=== PATIENT | female | born 1975 | race African-American/Black ===

== ENCOUNTER 2016-07-23 20:03 | Emergency (ER) | payer SELFPAY ==
[2016-07-23] MEDS ORDERED: predniSONE 20 MG TAB ONE (20:33)
--- NOTE | 2016-07-23 20:45 | ERRECORD ---
[facility] EMERGENCY RECORD HPI RASH (22:29 LHOD) CHIEF COMPLAINT: Patient presents for evaluation of pruritis. HISTORIAN: History provided by patient. TIME COURSE: PT HAS PRESSURED SPEECH AND KEEPS DESCRIBING HER FEAR PEOPLE ARE "FLICKING" INSECTS OFF THEIR HAIR ONTO HER. SHE REPORTS HER SCALP AND ARMS HAVE BEEN ITCHING "FOR A MINUTE". I ASKED HOW LONG THAT MEANT SINCE SHE SAID A LONG TIME, SHE SAID MAYBE A YEAR. ROS (22:30 LHOD) CONSTITUTIONAL: Historian denies fever. CARDIOVASCULAR: Historian denies chest pain. RESPIRATORY: Historian denies shortness of breath, denies wheezing. GI: Historian denies abdominal pain, denies nausea, denies vomiting. SKIN: Historian reports pruritis, denies rash. NO RASH, BUT PT SCRATCHED AREAS ON TOP OF SCALP. ALLERGIC/IMMUNOLOGIC: Historian denies hives. NOTES: All systems reviewed, negative except as described above. PAST MEDICAL HISTORY MEDICAL HISTORY: No past medical history, Flu vaccine not up to date, Tetanus immunization up to date, Pneumococcal vaccine not up to date. (20:17 CJEF) FEMALE SURGICAL HISTORY: Surgical history of tubal ligation, Date of surgery 2004. (20:17 CJEF) SOCIAL HISTORY: Patient currently uses drugs, abuses marijuana, Patient drinks socially, Patient denies drug use, Patient currently uses tobacco, smokes cigarettes, Light tobacco smoker, SOCIALLY. (20:17 CJEF) FAMILY HISTORY: Family history includes diabetes, mother, Family history includes malignancy, father. (20:17 CJEF) NOTES: Nursing records reviewed. (22:37 LHOD) KNOWN ALLERGIES ALLERGIES: (Unconfirmed) Flagyl: Reaction: Nausea FOOD ALLERGIES: (Unconfirmed) LATEX ALLERGY? (Unconfirmed) No Known Allergies (Unconfirmed) CURRENT MEDICATIONS (20:15 CJEF) None VITAL SIGNS VITAL SIGNS: Pulse: 88, Resp: 20, Temp: 98.4 (Tympanic), Pain: 0, O2 sat: 96 on Room Air, Time: 07/23/2016 20:10. (20:10 CJEF) BP: 131/91, Time: 07/23/2016 20:15. (20:15 CJEF) &a-1R&a+25V*p+0X*h8181F*c202B*c15G*c2P*p-0X&a-25V&a+1R Name: Ayanna Lopes : 1975 F40 MedRec: [id number] AcctNum: [id number] Prepared: TueJul 23, 2016 22:42 by Interface Page [address] [facility] EMERGENCY RECORD PHYSICAL EXAM (22:31 LHOD) CONSTITUTIONAL: Vital signs reviewed, Patient afebrile, Pulse normal, Blood pressure normal, Respiratory rate normal, Patient alert and oriented to person, place and time. HEAD: Head exam included findings of head atraumatic. EYES: Pupils equally round and reactive to light, Extraocular muscles intact. NECK: Neck exam included findings of normal range of motion, Trachea midline. RESPIRATORY CHEST: Respiratory exam included findings of no respiratory distress, Breath sounds clear. CARDIOVASCULAR: Cardiovascular exam included findings of heart rate regular rate and rhythm, Heart sounds normal. ABDOMEN FEMALE: Abdominal exam included findings of abdomen nontender. UPPER EXTREMITY: Upper extremity exam normal. LOWER EXTREMITY: Lower extremity exam normal. NEURO: Neuro exam findings include patient oriented to person, place and time. SKIN: no rash, 1 AREA OF EXCORIATION OF LEFT TOP OF SCALP. NO OTHER EVIDENCE OF LICE OR RASH. PSYCHIATRIC: Affect, anxious. MEDICATION ADMINISTRATION SUMMARY Drug Name: predniSONE oral, Dose Ordered: 40 mg, Route: Oral, Status: Given, Time: 20:38 07/23/2016, Detailed record available in Medication Service section. DOCTOR NOTES (22:38 LHOD) TEXT: I DO NOT SEE DEFINITE SCABIES, BUT PT REQUESTS MEDICATED SHAMPOO, SINCE SHE IS CONCERNED SHE HAS BEEN EXPOSED TO IT. PROBLEM LIST No recorded problems DIAGNOSIS (20:26 LHOD) FINAL: PRIMARY: NON-SPECIFIC DERMATITIS. PRESCRIPTION predniSONE oral: TABLET : 20 mg : ORAL : Quantity: 2 Unit: tab(s) Route: ORAL Schedule: once a day Dispense: 6 May substitute. Refills: No Refills . (20:26 LHOD) NOTES: No Refills. (20:26 LHOD) permethrin: CREAM (GRAM) : 5 % : TOPICAL : Quantity: 1 Unit: units Route: TOPICAL Schedule: ONCE Dispense: 1 May substitute. Refills: No Refills . (20:27 LHOD) NOTES: No Refills. (20:27 LHOD) permethrin: LIQUID (ML) : 1 % : TOPICAL : Quantity: 1 &a-1R&a+25V*p+0X*y4548R*c202B*c15G*c2P*p-0X&a-25V&a+1R Name: Ayanna Lopes : 1975 F40 MedRec: [id number] AcctNum: [id number] Prepared: TueJul 23, 2016 22:42 by Interface Page [address] [facility] EMERGENCY RECORD Unit: units Route: TOPICAL Schedule: See Notes Dispense: 1 May substitute. Refills: No Refills . (20:28 LHOD) NOTES: No Refills. (20:28 LHOD) DISPOSITION PATIENT: Disposition Type: Discharge, Disposition: *Discharge Home, Condition: Good. (20:26 LHOD) Patient left the department. (20:39 [facility]) Aguirre: CJEF=BRET Hutchinson, Carolyn LHOD=MD Ingris, Tati &a-1R&a+25V*p+0X*s6215R*c202B*c15G*c2P*p-0X&a-25V&a+1R Name: Ayanna Lopes : 1975 F40 MedRec: [id number] AcctNum: [id number] Prepared: TueJul 23, 2016 22:42 by Interface Page 3 [facility] 3 [facility]MD [facility]
--- NOTE | 2016-07-23 20:51 | PICIS ---
[facility] EMERGENCY RECORD TRIAGE (TueJul 23, 2016 20:14 CJEF) TRIAGE NOTES: PT REPORTS ITCHING TO SCALP PRIMAIRLY, THOUGH PT WITH SCATTERED THOUGHTS AND HARD TO FOLLOW. PT ALSO REPORTS ITCHING TO BODY. PT STATES THAT SHE HAS HAD THIS EPISODE BEFORE AND STATES THAT SHE WAS TOLD THIS ITCHING WAS DUE TO OVERDOSING ON MEDS. PT STATES THAT SHE NOTS SURE WHAT THE CAUSE IS. PT ALSO STATES SHE HAS BEEN TALKING TO MANY PEOPLE ATTEMPTING TO SELF DIAGNOSE. (TueJul 23, 2016 20:14 CJEF) PATIENT: NAME: Ayanna Lopes, AGE: 40, GENDER: female, : Tue1975, TIME OF GREET: TueJul 23, 2016 20:04, PREFERRED LANGUAGE: Indonesian, ETHNICITY: Not or , ECODE BILLING MAP: [facility], SSN: [id number], Zip Code: [address], KG WEIGHT: 58.97, PHONE: , , , PERSON ID: [id number], PCP: NONE. (TueJul 23, 2016 20:14 CJEF) COMPLAINT: ITCHING FROM HEAD TO TOE. (TueJul 23, 2016 20:14 CJEF) ADMISSION: URGENCY: 4 Non Urgent, ADMISSION SOURCE: Home, TRANSPORT: Walk-in, BED: TRIAGE. (TueJul 23, 2016 20:14 CJEF) ASSESSMENT: Assessment: ITCHING ENTIRE BODY. (20:17 CJEF) PAIN: No complaint of pain. (20:17 CJEF) IMMUNIZATIONS: Flu vaccine not up to date, Tetanus immunization up to date, Pneumococcal vaccine not up to date. (20:17 CJEF) SIRS SCORING: Heart Rate 55-109 (0), Temp range 96.8-101.1 (0), respiratory rate 12-24 (0), Mental Status altered: no (0), Infection or Suspected Infection: No. (20:17 CJEF) TRIAGE SCREENING: Patient denies suicidal ideation, Patient denies presence of domestic violence. (20:17 CJEF) PROVIDERS: TRIAGE NURSE: Carolyn Hutchinson RN. (TueJul 23, 2016 20:14 CJEF) VITAL SIGNS: Pulse 88, Resp 20, Temp 98.4, (Tympanic), Pain 0, O2 Sat 96, on Room Air, Time 07/23/2016 20:10. (20:10 CJEF) BP 131/91, Time 07/23/2016 20:15. (20:15 CJEF) PREVIOUS VISIT ALLERGIES: Flagyl. (TueJul 23, 2016 20:14 CJEF) Flagyl. (20:17 CJEF) KNOWN ALLERGIES ALLERGIES: (Unconfirmed) Flagyl: Reaction: Nausea FOOD ALLERGIES: (Unconfirmed) LATEX ALLERGY? (Unconfirmed) No Known Allergies (Unconfirmed) CURRENT MEDICATIONS (20:15 CJEF) None VITAL SIGNS VITAL SIGNS: Pulse: 88, Resp: 20, Temp: 98.4 (Tympanic), Pain: 0, O2 sat: 96 on Room Air, Time: 07/23/2016 20:10. (20:10 CJEF) &a-1R&a+25V*p+0X*y2707I*c202B*c15G*c2P*p-0X&a-25V&a+1R Name: Ayanna Lopes : 1975 F40 MedRec: [id number] AcctNum: [id number] Prepared: TueJul 23, 2016 22:49 by Interface Page 1 of 5 pMD [facility] EMERGENCY RECORD BP: 131/91, Time: 07/23/2016 20:15. (20:15 CJEF) NURSING ASSESSMENT: SKIN (20:17 CJEF) CONSTITUTIONAL: Complex assessment performed, Patient arrives ambulatory, Gait steady, History obtained from patient, Patient appears, anxious, Patient cooperative, Patient alert, Oriented to person, place and time, Skin warm, Skin dry, Skin normal in color, Mucous membranes pink, Mucous membranes moist, Patient, with poor personal hygiene, PT REPORTS ITCHING TO SCALP PRIMAIRLY, THOUGH PT WITH SCATTERED THOUGHTS AND HARD TO FOLLOW. PT ALSO REPORTS ITCHING TO BODY. PT STATES THAT SHE HAS HAD THIS EPISODE BEFORE AND STATES THAT SHE WAS TOLD THIS ITCHING WAS DUE TO OVERDOSING ON MEDS. PT STATES THAT SHE NOTS SURE WHAT THE CAUSE IS. PT ALSO STATES SHE HAS BEEN TALKING TO MANY PEOPLE ATTEMPTING TO SELF DIAGNOSE. PAIN: itching pain, ITCHING TO ENTIRE BODY. SKIN: Skin assessment findings include skin warm, Skin dry, Skin normal in color, Notes: ITCHING TO ENTIRE BODY. NOTES: Patient tolerated procedure well. SAFETY: Side rails up, Cart/Stretcher in lowest position, Family at bedside, Call light within reach, Hospital ID band on. NURSING PROCEDURE: DISCHARGE NOTE (20:38 [facility]) DISCHARGE: Patient discharged to home, ambulating without assistance, driving self, unaccompanied, Summary of Care printed/ provided, Patient requested and was provided an electronic copy of Discharge Instructions, Transition record given to patient, Discharge instructions given to patient, Simple or moderate discharge teaching performed, Prescriptions given and instructions on side effects given, Medication reconciliation form given, Above person(s) verbalized understanding of discharge instructions and follow-up care, Patient treated and evaluated by physician. BELONGINGS: Belongings remain with patient. NOTES: Patient tolerated procedure well. SAFETY: Side rails up, Cart/Stretcher in lowest position, Family at bedside, Call light within reach, Hospital ID band on. MEDICATION ADMINISTRATION SUMMARY Drug Name: predniSONE oral, Dose Ordered: 40 mg, Route: Oral, Status: Given, Time: 20:38 07/23/2016, Detailed record available in Medication Service section. MEDICATION SERVICE (20:38 [facility]) predniSONE oral: Order: predniSONE oral (prednisone) - Dose: 40 mg : Oral Ordered by: Tati Amado MD Entered by: Tati Amado MD TueJul 23, 2016 20:25 Documented as given by: Carolyn Hutchinson RN TueJul 23, 2016 20:38 Patient, Medication, Dose, Route and Time verified prior to &a-1R&a+25V*p+0X*x7654A*c202B*c15G*c2P*p-0X&a-25V&a+1R Name: Ayanna Lopes : 1975 F40 MedRec: [id number] AcctNum: [id number] Prepared: TueJul 23, 2016 22:49 by Interface Page 2 of 5 pMD [facility] EMERGENCY RECORD administration. Amount given: 40MG, Site: Medication administered P.O., Mouth check performed after administration of medication, Patient appears Awake and alert- acceptable, Correct patient, time, route, dose and medication confirmed prior to administration, Patient advised of actions and side-effects prior to administration, Allergies confirmed and medications reviewed prior to administration, Patient tolerated procedure well, Patient in position of comfort, Side rails up, Cart in lowest position, Family at bedside. HPI RASH (22:29 LHOD) CHIEF COMPLAINT: Patient presents for evaluation of pruritis. HISTORIAN: History provided by patient. TIME COURSE: PT HAS PRESSURED SPEECH AND KEEPS DESCRIBING HER FEAR PEOPLE ARE "FLICKING" INSECTS OFF THEIR HAIR ONTO HER. SHE REPORTS HER SCALP AND ARMS HAVE BEEN ITCHING "FOR A MINUTE". I ASKED HOW LONG THAT MEANT SINCE SHE SAID A LONG TIME, SHE SAID MAYBE A YEAR. ROS (22:30 LHOD) CONSTITUTIONAL: Historian denies fever. CARDIOVASCULAR: Historian denies chest pain. RESPIRATORY: Historian denies shortness of breath, denies wheezing. GI: Historian denies abdominal pain, denies nausea, denies vomiting. SKIN: Historian reports pruritis, denies rash. NO RASH, BUT PT SCRATCHED AREAS ON TOP OF SCALP. ALLERGIC/IMMUNOLOGIC: Historian denies hives. NOTES: All systems reviewed, negative except as described above. PAST MEDICAL HISTORY MEDICAL HISTORY: No past medical history, Flu vaccine not up to date, Tetanus immunization up to date, Pneumococcal vaccine not up to date. (20:17 CJEF) FEMALE SURGICAL HISTORY: Surgical history of tubal ligation, Date of surgery 2004. (20:17 CJEF) SOCIAL HISTORY: Patient currently uses drugs, abuses marijuana, Patient drinks socially, Patient denies drug use, Patient currently uses tobacco, smokes cigarettes, Light tobacco smoker, SOCIALLY. (20:17 CJEF) FAMILY HISTORY: Family history includes diabetes, mother, Family history includes malignancy, father. (20:17 CJEF) NOTES: Nursing records reviewed. (22:37 LHOD) PHYSICAL EXAM (22:31 LHOD) CONSTITUTIONAL: Vital signs reviewed, Patient afebrile, Pulse normal, Blood pressure normal, Respiratory rate normal, Patient alert and oriented to person, place and time. HEAD: Head exam included findings of head atraumatic. &a-1R&a+25V*p+0X*p4721Q*c202B*c15G*c2P*p-0X&a-25V&a+1R Name: Ayanna Lopes : 1975 F40 MedRec: [id number] AcctNum: [id number] Prepared: TueJul 23, 2016 22:49 by Interface Page 3 of 5 pMD [facility] EMERGENCY RECORD EYES: Pupils equally round and reactive to light, Extraocular muscles intact. NECK: Neck exam included findings of normal range of motion, Trachea midline. RESPIRATORY CHEST: Respiratory exam included findings of no respiratory distress, Breath sounds clear. CARDIOVASCULAR: Cardiovascular exam included findings of heart rate regular rate and rhythm, Heart sounds normal. ABDOMEN FEMALE: Abdominal exam included findings of abdomen nontender. UPPER EXTREMITY: Upper extremity exam normal. LOWER EXTREMITY: Lower extremity exam normal. NEURO: Neuro exam findings include patient oriented to person, place and time. SKIN: no rash, 1 AREA OF EXCORIATION OF LEFT TOP OF SCALP. NO OTHER EVIDENCE OF LICE OR RASH. PSYCHIATRIC: Affect, anxious. EVENTS TRANSFER: Triage to Emergency Triage. (TueJul 23, 2016 20:14 CJEF) Emergency Triage to Main ED -03. (20:17 CJEF) Removed from Emergency Main ED -03. (20:39 CJEF) DOCTOR NOTES (22:38 LHOD) TEXT: I DO NOT SEE DEFINITE SCABIES, BUT PT REQUESTS MEDICATED SHAMPOO, SINCE SHE IS CONCERNED SHE HAS BEEN EXPOSED TO IT. PROBLEM LIST No recorded problems DIAGNOSIS (20:26 LHOD) FINAL: PRIMARY: NON-SPECIFIC DERMATITIS. DISPOSITION PATIENT: Disposition Type: Discharge, Disposition: *Discharge Home, Condition: Good. (20:26 LHOD) Patient left the department. (20:39 CJEF) INSTRUCTION (20:29 LHOD) DISCHARGE: CONTACT DERMATITIS, SCABIES. FOLLOWUP: Follow up with Primary Care Physician in 5 days. SPECIAL: BENADRYL 25 MG EVERY 6 HOURS NEEDED FOR ITCHING. COOL COMPRESSES TO SKIN TO DECREASE ITCHING. Follow-up with your PCP. PRESCRIPTION predniSONE oral: TABLET : 20 mg : ORAL : Quantity: 2 Unit: tab(s) Route: ORAL Schedule: once a day Dispense: 6 &a-1R&a+25V*p+0X*r8135I*c202B*c15G*c2P*p-0X&a-25V&a+1R Name: Ayanna Lopes : 1975 F40 MedRec: [id number] AcctNum: [id number] Prepared: TueJul 23, 2016 22:49 by Interface Page 4 of 5 pMD [facility] EMERGENCY RECORD May substitute. Refills: No Refills . (20:26 LHOD) NOTES: No Refills. (20:26 LHOD) permethrin: CREAM (GRAM) : 5 % : TOPICAL : Quantity: 1 Unit: units Route: TOPICAL Schedule: ONCE Dispense: 1 May substitute. Refills: No Refills . (20:27 LHOD) NOTES: No Refills. (20:27 LHOD) permethrin: LIQUID (ML) : 1 % : TOPICAL : Quantity: 1 Unit: units Route: TOPICAL Schedule: See Notes Dispense: 1 May substitute. Refills: No Refills . (20:28 LHOD) NOTES: No Refills. (20:28 LHOD) IMAGING (20:39 [facility]) *DISCHARGE INSTRUCTIONS RECEIPT: Image captured from scanner. Page 2 added. Image captured from scanner. *SUPPLY CHARGE SHEET: Image captured from scanner. ADMIN (22:38 LHOD) DIGITAL SIGNATURE: MD Amado Lefayne. Aguirre: CJEF=BRET Hutchinson, Carolyn LHOD=MD Amado Lefayne &a-1R&a+25V*p+0X*s0761U*c202B*c15G*c2P*p-0X&a-25V&a+1R Name: Ayanna Lopes : 1975 F40 MedRec: [id number] AcctNum: [id number] Prepared: TueJul 23, 2016 22:49 by Interface Page 5 of 5 pMD [facility]
== END 2016-07-23 20:40 | disposition home or self-care (01) ==
LOC: MADERS 20:03
DX: L30.9 Dermatitis, unspecified (principal); F17.210 Nicotine dependence, cigarettes, uncomplicated
CPT/HCPCS: 99282; J7506

== ENCOUNTER 2017-02-20 16:29 | Emergency (ER) | payer SELFPAY ==
--- NOTE | 2017-02-20 17:56 | RAD ---
RIGHT WRIST THREE VIEWS: Date: 02-20-17 History: Joint pain. FINDINGS: No widening of the scapholunate interval. No displaced fracture or dislocation is seen. IMPRESSION: No acute findings. If the study was performed in the setting of trauma and symptoms persist, follow up in 7-10 days with dedicated scaphoid views advised. POS: [facility]
== END 2017-02-20 17:30 | disposition home or self-care (01) ==
LOC: MADERS 16:29
DX: M25.531 Pain in right wrist (principal)

== ENCOUNTER 2017-03-15 15:14 | Emergency (ER) | payer SELFPAY ==
[2017-03-15] MEDS ORDERED: Ketorolac Tromethamine 30 MG/ML VIAL ONE (16:19)
== END 2017-03-15 16:50 | disposition home or self-care (01) ==
LOC: MADERS 15:14
DX: I88.9 Nonspecific lymphadenitis, unspecified (principal); F17.210 Nicotine dependence, cigarettes, uncomplicated
CPT/HCPCS: 96372; J1885

== ENCOUNTER 2017-03-16 14:42 | Emergency (ER) | payer SELFPAY ==
[2017-03-16] MEDS ORDERED: Mag-Al Plus 1200 MG/1200 MG/120 MG/30 ML UDCUP ONE (14:58)
[2017-03-16 15:42] LABS: Clarity Hazy (Clear); Leukocyte Trace (Negative); Nitrite Negative (Negative); Pregnancy Test - Urine (BHCG) Negative (Negative); Pregu Control Background? CLEAR/WHITE (CLR/WHITE); Pregu Control Bar Appear? YES (CONTROL BAR); Protein, Urine (Dipstick) Negative (Neg-Trace); Specific Gravity 1.015 (1.002-1.036); Specific Gravity, Urine 1.015 (1.005-1.030)
[2017-03-16 15:43] LABS: Bilirubin Negative (Negative); Blood, Urine Negative (Negative); Glucose, Urine (Dipstick) Negative (Negative); Urobilinogen 0.2 mg/dL (0.2-1.0)
[2017-03-16 15:50] LABS: Bacteria/HPF Rare-Few HPF (None Seen); RBC/HPF None Seen HPF (0-3); Trichomonas/HPF Rare HPF (None Seen)
[2017-03-16 16:20] LABS: Amphetamine Detected (NotDetected); Benzodiazepine Screen Not Detected (NotDetected); Cocaine Metabolite Screen Detected (NotDetected); Methadone Not Detected (NotDetected); Methamphetamine Detected (NotDetected); Opiate Screen Not Detected (NotDetected); Phencyclidine (PCP) Not Detected (NotDetected); THC/Cannabinoid Screen Detected (NotDetected); Tricyclic Screen Not Detected (NotDetected)
[2017-03-16 16:21] LABS: Barbiturates Screen Not Detected (NotDetected); Medtox Control Line Valid? VALID (VALID); Oxycodone Screen Not Detected (NotDetected)
[2017-03-16 16:34] LABS: ALT (SGPT) 10 U/L (8-55); AST (SGOT) 12 U/L (5-34); Albumin 3.2 g/dL (3.5-5.0); Alkaline Phosphatase 54 U/L (40-150); Anion Gap 11 mmol/L (10-20); BUN (Urea Nitrogen) 7 mg/dL (7.0-18.7); Bilirubin, Total 0.5 mg/dL (0.2-1.2); Calc. Creatinine Clearance 0 mL/min (70-130); Calcium 9.1 mg/dL (7.8-10.44); Carbon Dioxide 28 mmol/L (22-29); Chloride 103 mmol/L (98-107); Estimated GFR-MDRD Greater than 90; Globulin 4.2 g/dL (2.4-3.5); Glucose 100 mg/dL (70-105); Potassium 3.5 mmol/L (3.5-5.1); Protein, Total 7.4 g/dL (6.0-8.3); Sodium 138 mmol/L (136-145)
[2017-03-16 16:36] LABS: Eosinophils 5 % (0-10); Hemoglobin 12.5 g/dL (12.0-16.0); Lymphocytes 24 % (21-51); MDiff Complete? YES; Mean Corpuscular HGB CONC 32.1 g/dL (32.0-36.0); Mean Corpuscular Hemoglobin 31.2 pg (27.0-31.0); Mean Corpuscular Volume 97.5 fl (81.0-99.0); Mean Platelet Volume 8.2 fL (7.4-10.4); Monocytes 7 % (0-10); Neutrophil 54 % (42-75); PLT Morphology Comment Appears Adequate; Platelet Count 289 thou/uL (130-400); RBC Distribution Width 12.5 % (11.5-14.5); RBC Morphology Normal; Reactive Lymphocytes 10 % (0-10); Red Blood Cell (RBC) Count 3.99 mill/uL (4.20-5.40); White Blood Cell (WBC) Count 4.9 thou/uL (4.8-10.8)
[2017-03-16] MEDS ORDERED: Azithromycin 250 MG TAB ONE (16:45)
[2017-03-16] MEDS ORDERED: cefTRIAXone\\ROCEPHIN 250 MG VIAL ONE (16:45)
[2017-03-16] MEDS ORDERED: Lidocaine 1% 20 ML MDV ONE (16:45)
[2017-03-16] MEDS ORDERED: Pantoprazole 40 MG VIAL ONE (19:06)
[2017-03-16] MEDS ORDERED: Promethazine HCl 25 MG/ML VIAL ONE (19:06)
== END 2017-03-16 17:20 | disposition home or self-care (01) ==
LOC: MADERS 14:42
DX: F12.10 Cannabis abuse, uncomplicated (principal); S66.91 Strain of unspecified muscle, fascia and tendon at wrist and hand level; F17.210 Nicotine dependence, cigarettes, uncomplicated; X58.XXXD Exposure to other specified factors, subsequent encounter
CPT/HCPCS: 36415; 80053; 80306; 81001; 81025; 85025; 96372; C9113; J0696; J2001; J2550

== ENCOUNTER 2017-03-16 18:16 | Emergency (ER) | payer SELFPAY ==
--- NOTE | 2017-03-16 20:00 | RAD ---
ABDOMEN TWO VIEW ONE VIEW CHEST X-RAY 03/16/17 HISTORY: Pain. COMPARISON: Abdomen two view with one view chest x-ray 2015. FINDINGS: Prominent nipple shadows. Lungs are clear without pneumothorax or effusion or focal air space consol idation. Cardiac silhouette and mediastinal contours are normal. No dilated loops of large or small bowel. No free air under the hemidiaphragms. No abnormal calcific ation projecting over the renal shadows. There are phleboliths in the pelvis. Five nonribbearing lum bar type vertebrae. IMPRESSION: No acute intrathoracic or intra-abdominal abnormality. POS: [facility]
[2017-03-16] MEDS ORDERED: Sodium Chloride 0.9% 100 ML BAG ONE (20:15)
[2017-03-16] MEDS ORDERED: Sodium Chloride 0.9% 1,000 ML BAG ONE (20:15)
[2017-03-16] MEDS ORDERED: diphenhydrAMINE HCl 25 MG CAP ONE (21:35)
== END 2017-03-16 21:45 | disposition home or self-care (01) ==
LOC: MADERS 18:16
DX: K29.00 Acute gastritis without bleeding (principal); F12.10 Cannabis abuse, uncomplicated; F17.210 Nicotine dependence, cigarettes, uncomplicated
CPT/HCPCS: 74022; 83690; 96361; 96365; 96375; J7050

== ENCOUNTER 2017-06-11 00:36 | Emergency (ER) | payer MEDICAID, SELFPAY ==
[2017-06-11] MEDS ORDERED: Ondansetron ODT 4 MG TAB ONE (01:21)
[2017-06-11] MEDS ORDERED: cefTRIAXone\\ROCEPHIN 500 MG VIAL ONE (01:21)
[2017-06-11] MEDS ORDERED: Azithromycin 250 MG TAB ONE (01:21)
[2017-06-11] MEDS ORDERED: Lidocaine 1% 20 ML MDV ONE (01:22)
[2017-06-11 01:31] LABS: Wet Prep Clue Cells Clue Cells Absent (None Seen); Wet Prep Spermatozoa 2nd Revie Agree with result (None Seen); Wet Prep Trichomonas Trichomonas Absent (None Seen)
[2017-06-13 01:19] LABS: Chlamydia by PCR Not Detected (NotDetected); GC by PCR Not Detected (NotDetected)
== END 2017-06-11 01:51 | disposition home or self-care (01) ==
LOC: MADERS 00:36
DX: A60.04 Herpesviral vulvovaginitis (principal); F14.10 Cocaine abuse, uncomplicated; F32.9 Major depressive disorder, single episode, unspecified; F17.210 Nicotine dependence, cigarettes, uncomplicated
CPT/HCPCS: 87210; 87491; 87591; 96372; J0696; J2001; Q0162

== ENCOUNTER 2017-07-28 13:23 | Emergency (ER) | payer MEDICAID ==
[2017-07-28] MEDS ORDERED: Triple Antibiotic Oint 1 GM Packet ONE (13:45)
[2017-07-28] MEDS ORDERED: Adacel (T-DAP) 0.5 ML VIAL ONE (13:54)
[2017-07-28 14:05] LABS: Amphetamine Not Detected (NotDetected); Barbiturates Screen Not Detected (NotDetected); Benzodiazepine Screen Not Detected (NotDetected); Cocaine Metabolite Screen Not Detected (NotDetected); Medtox Control Line Valid? VALID (VALID); Methadone Not Detected (NotDetected); Methamphetamine Not Detected (NotDetected); Opiate Screen Not Detected (NotDetected); Oxycodone Screen Not Detected (NotDetected); Phencyclidine (PCP) Not Detected (NotDetected); THC/Cannabinoid Screen Not Detected (NotDetected); Tricyclic Screen Not Detected (NotDetected)
== END 2017-07-28 14:35 | disposition home or self-care (01) ==
LOC: MADERS 13:23
DX: T20.54XA Corrosion of first degree of nose (septum), initial encounter (principal); F32.9 Major depressive disorder, single episode, unspecified; F17.210 Nicotine dependence, cigarettes, uncomplicated
CPT/HCPCS: 80306; 90471; 90715

== ENCOUNTER 2019-10-03 02:26 | Emergency (ER) | payer MEDICAID, SELFPAY ==
[2019-10-03] MEDS ORDERED: Famotidine In NaCl 20 mg/50 ml Premix Bag ONE (03:08)
[2019-10-03] MEDS ORDERED: Mag-Al Plus 1200 MG/1200 MG/120 MG/30 ML UDCUP ONE (03:08)
[2019-10-03] MEDS ORDERED: Sodium Chloride 0.9% 1,000 ML ONE (03:08)
[2019-10-03] MEDS ORDERED: Lidocaine Viscous Sol 2% 15 ml UD Cup ONE (03:08)
[2019-10-03 03:10] LABS: #Basophils 0.1 thou/uL (0.0-0.2); #Eosinphils 0.3 thou/uL (0.0-0.7); #Monocytes 0.4 thou/uL (0.11-0.59); #Neutrophils 2.1 thou/uL (1.40-6.50); %Basophils 1.8 % (0.0-1.0); %Eosinophils 5.6 % (0.0-10.0); %Lymphocytes 41.1 % (21.0-51.0); %Monocytes 8.9 % (0.0-10.0); %Neutrophils 42.6 % (42.0-75.0); Hemoglobin 12.2 g/dL (12.0-16.0); Mean Corpuscular HGB CONC 30.9 g/dL (32.0-36.0); Mean Corpuscular Volume 100.1 fL (78.0-98.0); Mean Platelet Volume 7.9 fL (7.4-10.4); Platelet Count 307 thou/uL (130-400); RBC Distribution Width 13.5 % (11.5-14.5); Red Blood Cell (RBC) Count 3.95 mill/uL (4.20-5.40); White Blood Cell (WBC) Count 4.9 thou/uL (4.8-10.8)
[2019-10-03 03:19] LABS: BHCG - Serum Negative (NEGATIVE); Pregs Control Background? CLEAR/WHITE (CLR/WHITE); Pregs Control Bar Appear? YES (CONTROL BAR)
[2019-10-03 03:23] LABS: ALT (SGPT) 13 U/L (8-55); AST (SGOT) 14 U/L (5-34); Albumin 3.6 g/dL (3.5-5.0); Alkaline Phosphatase 73 U/L (40-110); Anion Gap 14 mmol/L (10-20); BUN (Urea Nitrogen) 6 mg/dL (7.0-18.7); Bilirubin, Total 0.4 mg/dL (0.2-1.2); Calc. Creatinine Clearance 0 mL/min (70-130); Calcium 8.7 mg/dL (7.8-10.44); Carbon Dioxide 25 mmol/L (22-29); Chloride 103 mmol/L (98-107); Estimated GFR-MDRD Greater than 90; Globulin 4.3 g/dL (2.4-3.5); Glucose 89 mg/dL (70-105); Lipase 20 U/L (8-78); Potassium 3.8 mmol/L (3.5-5.1); Protein, Total 7.9 g/dL (6.0-8.3); Sodium 138 mmol/L (136-145)
== END 2019-10-03 04:15 | disposition home or self-care (01) ==
LOC: MADERS 02:26
DX: R10.10 Upper abdominal pain, unspecified (principal); R11.0 Nausea; M19.90 Unspecified osteoarthritis, unspecified site; F32.9 Major depressive disorder, single episode, unspecified; F17.210 Nicotine dependence, cigarettes, uncomplicated
CPT/HCPCS: 80053; 83690; 84703; 85025; 93005; 96361; 96365; J7050

== ENCOUNTER 2019-11-22 00:26 | Emergency (ER) | payer SELFPAY | END 2019-11-22 01:05 | disposition home or self-care (01) | LOC: MADERS 00:26 | DX: K64.5 Perianal venous thrombosis (principal); M19.90 Unspecified osteoarthritis, unspecified site; F32.9 Major depressive disorder, single episode, unspecified; F17.210 Nicotine dependence, cigarettes, uncomplicated | CPT/HCPCS: 99283 ==

== ENCOUNTER 2019-11-30 06:20 | Emergency (ER) | payer SELFPAY ==
[2019-11-30] MEDS ORDERED: Sodium Chloride 0.9% 1,000 ML ONE (07:06)
[2019-11-30] MEDS ORDERED: Lorazepam 2 MG/ML VIAL ONE (07:06)
[2019-11-30 07:23] LABS: #Eosinphils 0.1 thou/uL (0.0-0.7); #Lymphocytes 1.5 thou/uL (1.20-3.40); #Monocytes 0.6 thou/uL (0.11-0.59); #Neutrophils 2.7 thou/uL (1.40-6.50); %Basophils 0.9 % (0.0-1.0); %Eosinophils 2.3 % (0.0-10.0); %Lymphocytes 29.7 % (21.0-51.0); %Monocytes 11.9 % (0.0-10.0); %Neutrophils 55.2 % (42.0-75.0); Hemoglobin 12.5 g/dL (12.0-16.0); Mean Corpuscular HGB CONC 30.5 g/dL (32.0-36.0); Mean Corpuscular Hemoglobin 31.2 pg (27.0-31.0); Mean Corpuscular Volume 102.4 fL (78.0-98.0); Mean Platelet Volume 7.9 fL (7.4-10.4); Platelet Count 281 thou/uL (130-400); RBC Distribution Width 13.2 % (11.5-14.5); Red Blood Cell (RBC) Count 4.01 mill/uL (4.20-5.40); White Blood Cell (WBC) Count 4.9 thou/uL (4.8-10.8)
[2019-11-30 07:36] LABS: Acetaminophen Less than 6.0 mcg/mL (10.0-30.0); Alcohol Less than 10 mg/dL (Less than 10); Salicylate Less than 8.0 mg/dL (15.0-30.0)
[2019-11-30 07:38] LABS: ALT (SGPT) 18 U/L (8-55); AST (SGOT) 20 U/L (5-34); Albumin 3.7 g/dL (3.5-5.0); Alkaline Phosphatase 72 U/L (40-110); Anion Gap 13 mmol/L (10-20); BUN (Urea Nitrogen) 10 mg/dL (7.0-18.7); Bilirubin, Total 0.6 mg/dL (0.2-1.2); Calc. Creatinine Clearance 0 mL/min (70-130); Calcium 8.9 mg/dL (7.8-10.44); Carbon Dioxide 27 mmol/L (22-29); Chloride 102 mmol/L (98-107); Estimated GFR-MDRD Greater than 90; Globulin 4.6 g/dL (2.4-3.5); Glucose 83 mg/dL (70-105); Potassium 3.3 mmol/L (3.5-5.1); Protein, Total 8.3 g/dL (6.0-8.3); Sodium 139 mmol/L (136-145)
[2019-11-30] MEDS ORDERED: NS 0.9% w/ 20 MEQ KCL 1,000 ML ONE (07:50)
[2019-11-30 09:08] LABS: Phencyclidine (PCP) Not Detected (NotDetected); THC/Cannabinoid Screen Detected (NotDetected)
[2019-11-30 09:09] LABS: Amphetamine Detected (NotDetected); Barbiturates Screen Not Detected (NotDetected); Benzodiazepine Screen Not Detected (NotDetected); Cocaine Metabolite Screen Detected (NotDetected); Medtox Control Line Valid? VALID (VALID); Methadone Not Detected (NotDetected); Methamphetamine Not Detected (NotDetected); Opiate Screen Not Detected (NotDetected); Oxycodone Screen Not Detected (NotDetected); Tricyclic Screen Not Detected (NotDetected)
== END 2019-11-30 11:40 ==
LOC: MADERS 06:20
DX: F29 Unspecified psychosis not due to a substance or known physiological condition (principal); M19.90 Unspecified osteoarthritis, unspecified site; F32.9 Major depressive disorder, single episode, unspecified; F17.210 Nicotine dependence, cigarettes, uncomplicated
CPT/HCPCS: 36415; 80053; 80306; 80307; 84443; 85025; 96365; 96366; 96375; A4353; J2060; J3480; J7050

== ENCOUNTER 2020-01-19 01:26 | Emergency (ER) | payer SELFPAY ==
[2020-01-19 02:02] LABS: Bilirubin Negative (Negative); Blood, Urine Negative (Negative); Clarity Clear (Clear); Glucose, Urine (Dipstick) Negative (Negative); Ketone, Urine Negative (Negative); Leukocyte Trace (Negative); Nitrite Negative (Negative); Protein, Urine (Dipstick) 30 mg/dL (Neg-Trace); Specific Gravity, Urine 1.022 (1.002-1.036); Urobilinogen 0.2 mg/dL (Less than 2)
[2020-01-19 02:06] LABS: Amphetamine Not Detected (NotDetected); Barbiturates Screen Not Detected (NotDetected); Benzodiazepine Screen Not Detected (NotDetected); Cocaine Metabolite Screen Detected (NotDetected); Medtox Control Line Valid? VALID (VALID); Methadone Not Detected (NotDetected); Methamphetamine Detected (NotDetected); Opiate Screen Not Detected (NotDetected); Oxycodone Screen Not Detected (NotDetected); Phencyclidine (PCP) Not Detected (NotDetected); THC/Cannabinoid Screen Detected (NotDetected); Tricyclic Screen Not Detected (NotDetected)
[2020-01-19 02:09] LABS: #Basophils 0.1 thou/uL (0.0-0.2); #Eosinphils 0.1 thou/uL (0.0-0.7); #Lymphocytes 1.6 thou/uL (1.20-3.40); #Monocytes 0.4 thou/uL (0.11-0.59); %Basophils 1.5 % (0.0-1.0); %Eosinophils 1.5 % (0.0-10.0); %Lymphocytes 30.3 % (21.0-51.0); %Monocytes 8.3 % (0.0-10.0); %Neutrophils 58.4 % (42.0-75.0); Hemoglobin 12.2 g/dL (12.0-16.0); Mean Corpuscular HGB CONC 31.2 g/dL (32.0-36.0); Mean Corpuscular Hemoglobin 31.2 pg (27.0-31.0); Mean Platelet Volume 8.3 fL (7.4-10.4); Platelet Count 307 thou/uL (130-400); RBC Distribution Width 13.3 % (11.5-14.5); Red Blood Cell (RBC) Count 3.91 mill/uL (4.20-5.40); White Blood Cell (WBC) Count 5.1 thou/uL (4.8-10.8)
[2020-01-19 02:11] LABS: Bacteria/HPF Rare-Few HPF (None Seen); Mucous/LPF 1+ LPF (<2+); RBC/HPF None Seen HPF (0-3); Squamous Epithelial None Seen HPF (0-3)
[2020-01-19] MEDS ORDERED: Sodium Chloride 0.9% 1,000 ML ONE (02:16)
[2020-01-19 02:26] LABS: BHCG - Serum Negative (NEGATIVE); Pregs Control Background? CLEAR/WHITE (CLR/WHITE); Pregs Control Bar Appear? YES (CONTROL BAR)
[2020-01-19 02:27] LABS: Acetaminophen Less than 6.0 mcg/mL (10.0-30.0); Alcohol Less than 10 mg/dL (Less than 10); Salicylate Less than 8.0 mg/dL (15.0-30.0)
[2020-01-19 02:29] LABS: ALT (SGPT) 12 U/L (8-55); AST (SGOT) 15 U/L (5-34); Albumin 3.9 g/dL (3.5-5.0); Alkaline Phosphatase 76 U/L (40-110); Anion Gap 12 mmol/L (10-20); BUN (Urea Nitrogen) 6 mg/dL (7.0-18.7); Bilirubin, Total 0.5 mg/dL (0.2-1.2); CK (CPK) 92 U/L (29-168); Calc. Creatinine Clearance 0 mL/min (70-130); Carbon Dioxide 26 mmol/L (22-29); Chloride 102 mmol/L (98-107); Estimated GFR-MDRD 79; Globulin 4.6 g/dL (2.4-3.5); Glucose 80 mg/dL (70-105); Potassium 3.3 mmol/L (3.5-5.1); Protein, Total 8.5 g/dL (6.0-8.3); Sodium 137 mmol/L (136-145)
[2020-01-19 02:51] LABS: Thyroid Stimulating Hormone 1.5668 uIU/mL (0.35-4.94)
== END 2020-01-19 08:31 | disposition short-term general hospital (02) ==
LOC: MADERS 01:26
DX: F23 Brief psychotic disorder (principal); F55.8 Abuse of other non-psychoactive substances; I10 Essential (primary) hypertension; F32.9 Major depressive disorder, single episode, unspecified; F17.210 Nicotine dependence, cigarettes, uncomplicated
CPT/HCPCS: 80053; 80306; 80307; 81003; 81015; 82550; 84443; 84703; 85025; 93005; J7050

== ENCOUNTER 2020-06-24 13:50 | Emergency (ER) | payer SELFPAY | END 2020-06-24 14:08 | disposition left against medical advice (07) | LOC: MADERS 13:50 | DX: Z53.21 Procedure and treatment not carried out due to patient leaving prior to being seen by health care provider (principal) ==

== ENCOUNTER 2020-07-11 23:37 | Emergency (ER) | payer SELFPAY ==
[2020-07-12 01:02] LABS: #Basophils 0.1 thou/uL (0.0-0.2); #Eosinphils 0.1 thou/uL (0.0-0.7); #Monocytes 0.5 thou/uL (0.11-0.59); #Neutrophils 3.5 thou/uL (1.40-6.50); %Basophils 1.2 % (0.0-1.0); %Eosinophils 1.4 % (0.0-10.0); %Lymphocytes 32.1 % (21.0-51.0); %Monocytes 7.4 % (0.0-10.0); %Neutrophils 57.9 % (42.0-75.0); Hemoglobin 12.9 g/dL (12.0-16.0); Mean Corpuscular Hemoglobin 31.2 pg (27.0-31.0); Mean Corpuscular Volume 100.5 fL (78.0-98.0); Mean Platelet Volume 7.5 fL (7.4-10.4); Platelet Count 300 thou/uL (130-400); Red Blood Cell (RBC) Count 4.14 mill/uL (4.20-5.40); White Blood Cell (WBC) Count 6.1 thou/uL (4.8-10.8)
[2020-07-12 01:10] LABS: BHCG - Serum Negative (NEGATIVE); Pregs Control Background? CLEAR/WHITE (CLR/WHITE); Pregs Control Bar Appear? YES (CONTROL BAR)
[2020-07-12 01:16] LABS: ALT (SGPT) 16 U/L (8-55); AST (SGOT) 19 U/L (5-34); Albumin 3.7 g/dL (3.5-5.0); Alkaline Phosphatase 79 U/L (40-110); Anion Gap 12 mmol/L (10-20); BUN (Urea Nitrogen) 12 mg/dL (7.0-18.7); Bilirubin, Total 0.3 mg/dL (0.2-1.2); CK (CPK) 92 U/L (29-168); Calc. Creatinine Clearance 0 mL/min (70-130); Calcium 8.8 mg/dL (7.8-10.44); Carbon Dioxide 28 mmol/L (22-29); Chloride 101 mmol/L (98-107); Globulin 4.1 g/dL (2.4-3.5); Glucose 87 mg/dL (70-105); Potassium 3.3 mmol/L (3.5-5.1); Protein, Total 7.8 g/dL (6.0-8.3); Sodium 138 mmol/L (136-145)
[2020-07-12 01:17] LABS: Acetaminophen Less than 6.0 mcg/mL (10.0-30.0); Alcohol Less than 10 mg/dL (Less than 10); Salicylate Less than 8.0 mg/dL (15.0-30.0)
[2020-07-12 01:41] LABS: Amphetamine Detected (NotDetected); Barbiturates Screen Not Detected (NotDetected); Benzodiazepine Screen Not Detected (NotDetected); Cocaine Metabolite Screen Detected (NotDetected); Medtox Control Line Valid? VALID (VALID); Methadone Not Detected (NotDetected); Methamphetamine Detected (NotDetected); Opiate Screen Not Detected (NotDetected); Oxycodone Screen Not Detected (NotDetected); Phencyclidine (PCP) Not Detected (NotDetected); THC/Cannabinoid Screen Detected (NotDetected); Tricyclic Screen Not Detected (NotDetected)
== END 2020-07-12 01:27 | disposition left against medical advice (07) ==
LOC: MADERS 23:37
DX: R45.850 Homicidal ideations (principal); I10 Essential (primary) hypertension; F17.210 Nicotine dependence, cigarettes, uncomplicated; M19.90 Unspecified osteoarthritis, unspecified site
CPT/HCPCS: 36415; 80053; 80306; 80307; 82550; 84443; 84703; 85025; 99284

== ENCOUNTER 2020-07-24 05:24 | Emergency (ER) | payer SELFPAY | END 2020-07-24 05:42 | disposition left against medical advice (07) | LOC: MADERS 05:24 | DX: Z53.21 Procedure and treatment not carried out due to patient leaving prior to being seen by health care provider (principal) ==

== ENCOUNTER 2020-07-24 06:39 | Emergency (ER) | payer SELFPAY ==
[2020-07-24 09:53] LABS: Amphetamine Detected (NotDetected); Cocaine Metabolite Screen Detected (NotDetected); Methamphetamine Detected (NotDetected); Opiate Screen Not Detected (NotDetected); Phencyclidine (PCP) Not Detected (NotDetected); THC/Cannabinoid Screen Detected (NotDetected)
[2020-07-24 09:54] LABS: Barbiturates Screen Not Detected (NotDetected); Benzodiazepine Screen Not Detected (NotDetected); Medtox Control Line Valid? VALID (VALID); Methadone Not Detected (NotDetected); Oxycodone Screen Not Detected (NotDetected); Tricyclic Screen Not Detected (NotDetected)
== END 2020-07-24 07:20 | disposition left against medical advice (07) ==
LOC: MADERS 06:39
DX: Z53.21 Procedure and treatment not carried out due to patient leaving prior to being seen by health care provider (principal)
CPT/HCPCS: 80306

== ENCOUNTER 2020-10-06 10:15 | Emergency (ER) | payer SELFPAY ==
[2020-10-06] MEDS ORDERED: Lidocaine 1% w/Epinephrine 1:100K 20 ML VIAL ONE (10:54)
[2020-10-06] MEDS ORDERED: Boostrix 0.5 ML (Tdap) VIAL ONE (10:54)
[2020-10-06] MEDS ORDERED: Bacitracin 1 PK ONE (11:58)
== END 2020-10-06 12:19 | disposition home or self-care (01) ==
LOC: MADERS 10:15
DX: S91.011A Laceration without foreign body, right ankle, initial encounter (principal); F17.210 Nicotine dependence, cigarettes, uncomplicated; W25.XXXA Contact with sharp glass, initial encounter
CPT/HCPCS: 12032; 90471; 90715

== ENCOUNTER 2021-08-12 11:51 | Emergency (ER) | payer SELFPAY ==
[2021-08-12 13:34] LABS: #Basophils 0.1 thou/uL (0.0-0.2); #Lymphocytes 1.6 thou/uL (1.20-3.40); #Monocytes 0.6 thou/uL (0.11-0.59); #Neutrophils 3.6 thou/uL (1.40-6.50); %Basophils 1.1 % (0.0-1.0); %Eosinophils 0.4 % (0.0-10.0); %Lymphocytes 26.9 % (21.0-51.0); %Monocytes 10.6 % (0.0-10.0); Mean Corpuscular HGB CONC 31.1 g/dL (32.0-36.0); Mean Corpuscular Hemoglobin 29.8 pg (27.0-31.0); Mean Corpuscular Volume 95.8 fL (78.0-98.0); Mean Platelet Volume 8.4 fL (7.4-10.4); Platelet Count 370 thou/uL (130-400); RBC Distribution Width 12.9 % (11.5-14.5); Red Blood Cell (RBC) Count 4.03 mill/uL (4.20-5.40); White Blood Cell (WBC) Count 5.9 thou/uL (4.8-10.8)
[2021-08-12 13:47] LABS: ALT (SGPT) 14 U/L (8-55); AST (SGOT) 12 U/L (5-34); Acetaminophen Less than 6.0 mcg/mL (10.0-30.0); Albumin 3.7 g/dL (3.5-5.0); Alcohol Less than 10 mg/dL (Less than 10); Alkaline Phosphatase 77 U/L (40-110); Anion Gap 13 mmol/L (10-20); BUN (Urea Nitrogen) 9 mg/dL (7.0-18.7); Bilirubin, Total 0.6 mg/dL (0.2-1.2); CK (CPK) 80 U/L (29-168); Calc. Creatinine Clearance 0 mL/min (70-130); Carbon Dioxide 29 mmol/L (22-29); Chloride 103 mmol/L (98-107); Globulin 4.5 g/dL (2.4-3.5); Glucose 75 mg/dL (70-105); Potassium 3.5 mmol/L (3.5-5.1); Protein, Total 8.2 g/dL (6.0-8.3); Salicylate Less than 8.0 mg/dL (15.0-30.0); Sodium 141 mmol/L (136-145)
[2021-08-12 17:54] LABS: Bilirubin Negative (Negative); Blood, Urine Negative (Negative); Glucose, Urine (Dipstick) Negative (Negative); Ketone, Urine Negative (Negative); Leukocyte Trace (Negative); Nitrite Negative (Negative); Protein, Urine (Dipstick) Negative (Neg-Trace); pH, Urine 5.5 (5.0-9.0)
[2021-08-12 17:57] LABS: Clarity Clear (Clear); Pregnancy Test - Urine (BHCG) Negative (Negative); Pregu Control Background? CLEAR/WHITE (CLR/WHITE); Pregu Control Bar Appear? YES (CONTROL BAR); Specific Gravity 1.025 (1.002-1.036)
[2021-08-12 17:58] LABS: Specific Gravity, Urine 1.025 (1.002-1.036)
[2021-08-12 18:02] LABS: Amphetamine Detected (NotDetected); Barbiturates Screen Not Detected (NotDetected); Benzodiazepine Screen Not Detected (NotDetected); Cocaine Metabolite Screen Detected (NotDetected); Medtox Control Line Valid? VALID (VALID); Methadone Not Detected (NotDetected); Methamphetamine Detected (NotDetected); Opiate Screen Not Detected (NotDetected); Oxycodone Screen Not Detected (NotDetected); Phencyclidine (PCP) Not Detected (NotDetected); THC/Cannabinoid Screen Detected (NotDetected); Tricyclic Screen Not Detected (NotDetected)
[2021-08-12 18:04] LABS: Bacteria/HPF Rare-Few HPF (None Seen); Mucous/LPF 2+ LPF (<2+); RBC/HPF None Seen HPF (0-3); WBC/HPF 0-3 HPF (0-3)
== END 2021-08-12 22:45 | disposition home or self-care (01) ==
LOC: MADERS 11:51
DX: F19.10 Other psychoactive substance abuse, uncomplicated (principal); R41.0 Disorientation, unspecified; F17.210 Nicotine dependence, cigarettes, uncomplicated
CPT/HCPCS: 80053; 80306; 80307; 81003; 81015; 81025; 82550; 84443; 85025; 99285

== ENCOUNTER 2021-12-04 04:55 | Emergency (ER) | payer MEDICAID, OTHER, SELFPAY ==
[2021-12-04] MEDS ORDERED: Sodium Chloride 0.9% 1,000 ML ONE (05:37)
[2021-12-04 05:44] LABS: #Basophils 0.1 thou/uL (0.0-0.2); #Eosinphils 0.1 thou/uL (0.0-0.7); #Lymphocytes 1.6 thou/uL (1.20-3.40); #Monocytes 0.4 thou/uL (0.11-0.59); %Basophils 1.6 % (0.0-1.0); %Eosinophils 0.9 % (0.0-10.0); %Lymphocytes 25.8 % (21.0-51.0); %Monocytes 6.4 % (0.0-10.0); %Neutrophils 65.3 % (42.0-75.0); Hemoglobin 11.7 g/dL (12.0-16.0); Mean Corpuscular HGB CONC 31.1 g/dL (32.0-36.0); Mean Corpuscular Hemoglobin 29.7 pg (27.0-31.0); Mean Corpuscular Volume 95.7 fL (78.0-98.0); Mean Platelet Volume 9.3 fL (7.4-10.4); Platelet Count 264 thou/uL (130-400); RBC Distribution Width 13.7 % (11.5-14.5); Red Blood Cell (RBC) Count 3.94 mill/uL (4.20-5.40); White Blood Cell (WBC) Count 6.1 thou/uL (4.8-10.8)
[2021-12-04 05:54] LABS: BHCG - Serum Negative (NEGATIVE); Pregs Control Background? CLEAR/WHITE (CLR/WHITE); Pregs Control Bar Appear? YES (CONTROL BAR)
[2021-12-04 06:05] LABS: ALT (SGPT) 10 U/L (8-55); AST (SGOT) 15 U/L (5-34); Albumin 3.7 g/dL (3.5-5.0); Alkaline Phosphatase 64 U/L (40-110); Anion Gap 15 mmol/L (10-20); BUN (Urea Nitrogen) 9 mg/dL (7.0-18.7); Bilirubin, Total 0.6 mg/dL (0.2-1.2); Calc. Creatinine Clearance 0 mL/min (70-130); Carbon Dioxide 26 mmol/L (22-29); Chloride 102 mmol/L (98-107); Globulin 4.4 g/dL (2.4-3.5); Glucose 69 mg/dL (70-105); Lipase 14 U/L (8-78); Potassium 3.5 mmol/L (3.5-5.1); Protein, Total 8.1 g/dL (6.0-8.3); Sodium 139 mmol/L (136-145)
[2021-12-04 06:06] LABS: Acetaminophen Less than 10.0 mcg/mL (10.0-30.0); Alcohol Less than 10 mg/dL (Less than 10); Magnesium 1.9 mg/dL (1.6-2.6); Salicylate Less than 8.0 mg/dL (15.0-30.0)
[2021-12-04 06:09] LABS: Amphetamine Detected (NotDetected); Barbiturates Screen Not Detected (NotDetected); Benzodiazepine Screen Not Detected (NotDetected); Cocaine Metabolite Screen Not Detected (NotDetected); Medtox Control Line Valid? VALID (VALID); Methadone Not Detected (NotDetected); Methamphetamine Detected (NotDetected); Opiate Screen Not Detected (NotDetected); Oxycodone Screen Not Detected (NotDetected); Phencyclidine (PCP) Not Detected (NotDetected); THC/Cannabinoid Screen Not Detected (NotDetected); Tricyclic Screen Not Detected (NotDetected)
[2021-12-04 06:35] LABS: Bilirubin Negative (Negative); Blood, Urine Negative (Negative); Clarity Slightly Cloudy (Clear); Glucose, Urine (Dipstick) Negative (Negative); Ketone, Urine Trace mg/dL (Negative); Leukocyte Small (Negative); Nitrite Negative (Negative); Protein, Urine (Dipstick) Negative (Neg-Trace); Urobilinogen 0.2 mg/dL (Less than 2); pH, Urine 5.5 (5.0-9.0)
[2021-12-04 06:36] LABS: Bacteria/HPF 1+ HPF (None Seen); Mucous/LPF 2+ LPF (<2+); Specific Gravity, Urine 1.022 (1.002-1.036); Trichomonas/HPF Rare HPF (None Seen); WBC/HPF 21-50 HPF (0-3)
== END 2021-12-04 11:07 | disposition home or self-care (01) ==
LOC: MADERS 04:55
DX: F20.0 Paranoid schizophrenia (principal); F15.10 Other stimulant abuse, uncomplicated; A59.01 Trichomonal vulvovaginitis; I10 Essential (primary) hypertension; F17.210 Nicotine dependence, cigarettes, uncomplicated
CPT/HCPCS: 36416; 51701; 80053; 80306; 80307; 81003; 81015; 83690; 83735; 83880; 84484; 84703; 85025; 93005; J7050

== ENCOUNTER 2022-03-09 10:26 | Emergency (ER) | payer MEDICAID, SELFPAY | END 2022-03-09 11:46 | disposition home or self-care (01) | LOC: MADERS 10:26 | DX: M79.671 Pain in right foot (principal); M79.672 Pain in left foot; F20.9 Schizophrenia, unspecified; I10 Essential (primary) hypertension; F17.210 Nicotine dependence, cigarettes, uncomplicated | CPT/HCPCS: 99283 ==

== ENCOUNTER 2022-04-11 13:43 | Emergency (ER) | payer SELFPAY | END 2022-04-11 15:50 | disposition home or self-care (01) | LOC: MADERS 13:43 | DX: R50.9 Fever, unspecified (principal); R09.89 Other specified symptoms and signs involving the circulatory and respiratory systems; I10 Essential (primary) hypertension; F17.210 Nicotine dependence, cigarettes, uncomplicated; Z20.822 Contact with and (suspected) exposure to COVID-19; Z76.0 Encounter for issue of repeat prescription | CPT/HCPCS: 99283; U0003; U0005 ==

== ENCOUNTER 2022-09-19 12:04 | Emergency (ER) | payer SELFPAY ==
[2022-09-19] MEDS ORDERED: Ketorolac Tromethamine 60 MG/2 ML VIAL ONE (12:34)
== END 2022-09-19 13:25 | disposition home or self-care (01) ==
LOC: MADERS 12:04
DX: M25.512 Pain in left shoulder (principal); I10 Essential (primary) hypertension
CPT/HCPCS: 96372; J1885

== ENCOUNTER 2024-10-25 09:38 | Emergency (ER) | payer SELFPAY | END 2024-10-25 09:55 | disposition left against medical advice (07) | LOC: MADERS 09:38 | DX: Z53.21 Procedure and treatment not carried out due to patient leaving prior to being seen by health care provider (principal) ==